=== PATIENT | male | born 1935 ===

== ENCOUNTER 2021-03-30 09:44 | Inpatient (IN) | payer MEDICARE, OTHER ==
[~2021-03-30] VITALS: Ht 182.9 cm; Wt 55.0 kg
--- NOTE | 2021-03-30 10:34 | NUR ---
RESP ISO CART AT DOORWAY. EKG COMPLETED ON ARRIVAL. PT PLACED ON ALL ROOM MONITORING. IV PLACED, BC X 1 DRAWN WITH START. PT A/O X3. PT REPORTS COVID TEST AT [facility] 2-3 DAYS AGO. PRODUCTIVE COUGH, WHITE SPUTUM, FATIGUE AND SOB WORSENING TODAY. RA SAT 97-98% PT DENIES PAIN, INTERMITTENTLY SLEEPING. WARM BLANKET PROVIDED, CALL LIGHT WITHIN REACH.
[2021-03-30] MEDS ORDERED: BPH MED PO (10:43)
[2021-03-30] MEDS ORDERED: CARB1TAB44 PO (10:43)
[2021-03-30 11:23] LABS: BASOPHILS % (AUTO) 1 % (0-1); EOSINOPHILS % (AUTO) 0 % (1-7); LYMPHOCYTES % (AUTO) 36 % (22-44); MEAN CORPUSCULAR HEMOGLOBIN 32.9 pg (27.5-34.5); MEAN CORPUSCULAR HGB CONC 35.5 g/dL (33.2-36.2); MEAN PLATELET VOLUME 6.7 fL (7.4-10.4); MONOCYTES % (AUTO) 17 % (2-9); NEUTROPHILS % (AUTO) 46 % (42-75); PLATELET COUNT 153 x10^3/uL (130-400); RED BLOOD COUNT 3.98 x10^6/uL (4.38-5.82); RED CELL DISTRIBUTION WIDTH 13.8 % (9.4-14.8)
[2021-03-30 11:30] LABS: ALBUMIN 3.4 g/dL (3.4-5.0); ANION GAP 6 mmol/L (5-15); CALCIUM 9.5 mg/dL (8.5-10.1); CHLORIDE 102 mmol/L (98-107)
[2021-03-30 11:34] LABS: ALANINE AMINOTRANSFERASE 9 U/L (12-78); ALKALINE PHOSPHATASE 71 U/L (45-117); BILIRUBIN,TOTAL 0.5 mg/dL (0.2-1.0); TOTAL PROTEIN 6.4 g/dL (6.4-8.2)
--- NOTE | 2021-03-30 12:06 | NUR ---
EMT ATTEMPTED TO GET PT UP OOB WITH WALKER AND AMBULATE. PT UNSTEADY AND TOO WEAK TO EVEN STAND. THIS REPORTED TO ERP.
--- NOTE | 2021-03-30 12:28 | NUR ---
[facility] IN TO SEE PT.
[2021-03-30] MEDS ORDERED: ONDANSETRON 2MG/ML, 2ML IVPush PRN (13:00)
[2021-03-30] MEDS ORDERED: ENOXAPARIN 40 MG/0.4 ML SQ SCH ×2 (13:00)
[2021-03-30] MEDS ORDERED: BENZONATATE 100 MG CAPSULE PO PRN (13:00)
[2021-03-30] MEDS ORDERED: ONDANSETRON ODT 4 MG PO PRN (13:00)
[2021-03-30] MEDS ORDERED: ACETAMINOPHEN 325 MG TABLET PO PRN (13:00)
--- NOTE | 2021-03-30 13:09 | NUR ---
ATTEMPT TO CALL REPORT.
--- NOTE | 2021-03-30 13:48 | NUR ---
AT BS, THROUGHPUT AND PRIMARY ATTEMPTING TO GET TRANSPORT FOR HOME. PT TO REMAIN IN ED UNTIL IS DISCHARGED FROM ED.
--- NOTE | 2021-03-30 14:53 | NUR ---
REPORT TO MOI INMAN READY FOR TRANSPORT.
[2021-03-30] MEDS: CARBIDOPA/LEVODOPA CR 50 MG/200 MG TABLET PO SCH ×2 (16:00→21:17)
[2021-03-30] MEDS: DEXAMETHASONE 4 MG TABLET PO SCH ×2 (16:00→21:17)
[2021-03-30 16:20] LABS: ALANINE AMINOTRANSFERASE 11 U/L (12-78); ALBUMIN 3.2 g/dL (3.4-5.0); ANION GAP 7 mmol/L (5-15); CALCIUM 9.4 mg/dL (8.5-10.1); CHLORIDE 103 mmol/L (98-107)
[2021-03-30 16:23] LABS: ALKALINE PHOSPHATASE 72 U/L (45-117); BILIRUBIN,TOTAL 0.5 mg/dL (0.2-1.0); TOTAL PROTEIN 6.1 g/dL (6.4-8.2)
[2021-03-30] MEDS: CEFTRIAXONE 1,000 MG in DEXTROSE 5% 50 ML IV SCH (18:34)
[2021-03-30] MEDS: SODIUM CHLORIDE 0.9% 1,000 ML IV SCH (18:34)
[2021-03-30 20:01] VITALS: BP 131/70
[2021-03-30] MEDS: ENOXAPARIN 60 MG/0.6 ML SQ SCH (21:17)
[2021-03-31 00:51] VITALS: BP 116/67
[2021-03-31 04:40] LABS: BASOPHILS % (AUTO) 1 % (0-1); EOSINOPHILS % (AUTO) 1 % (1-7); LYMPHOCYTES % (AUTO) 34 % (22-44); MEAN CORPUSCULAR HEMOGLOBIN 32.3 pg (27.5-34.5); MEAN CORPUSCULAR HGB CONC 35.2 g/dL (33.2-36.2); MEAN PLATELET VOLUME 6.7 fL (7.4-10.4); MONOCYTES % (AUTO) 14 % (2-9); NEUTROPHILS % (AUTO) 50 % (42-75); PLATELET COUNT 146 x10^3/uL (130-400); RED BLOOD COUNT 4.01 x10^6/uL (4.38-5.82); RED CELL DISTRIBUTION WIDTH 13.5 % (9.4-14.8)
[2021-03-31 04:50] LABS: ANION GAP 8 mmol/L (5-15); CALCIUM 8.5 mg/dL (8.5-10.1); CHLORIDE 104 mmol/L (98-107)
[2021-03-31 04:52] LABS: ALANINE AMINOTRANSFERASE 16 U/L (12-78); ALKALINE PHOSPHATASE 72 U/L (45-117); BILIRUBIN,TOTAL 0.5 mg/dL (0.2-1.0); CREATINE KINASE, TOTAL 543 U/L (39-308); CREATININE 0.72 mg/dL (0.7-1.3); TOTAL PROTEIN 6.1 g/dL (6.4-8.2)
[2021-03-31] MEDS: CARBIDOPA/LEVODOPA CR 50 MG/200 MG TABLET PO SCH ×2 (06:15→11:59)
[2021-03-31 07:54] VITALS: BP 125/72
[2021-03-31] MEDS ORDERED: BPH MED PO SCH (09:00)
[2021-03-31] MEDS: DEXAMETHASONE 4 MG TABLET PO SCH ×3 (09:40→21:51)
[2021-03-31] MEDS: ENOXAPARIN 60 MG/0.6 ML SQ SCH ×2 (09:41→21:51)
[2021-03-31 12:48] VITALS: BP 157/77
[2021-03-31] MEDS ORDERED: PRAM1TAB5 PO (12:49)
[2021-03-31] MEDS ORDERED: OXYC-307 PO (12:49)
[2021-03-31] MEDS ORDERED: FINA5TAB4 PO (12:49)
[2021-03-31] MEDS ORDERED: SIMV20TA19 PO (12:49)
[2021-03-31] MEDS ORDERED: TROS20TA2 PO (12:49)
[2021-03-31] MEDS ORDERED: TAMS-11 PO (12:49)
[2021-03-31] MEDS: CEFTRIAXONE 1,000 MG in DEXTROSE 5% 50 ML IV SCH (17:58)
[2021-03-31] MEDS: SODIUM CHLORIDE 0.9% 1,000 ML IV SCH (17:58)
[2021-03-31 21:44] VITALS: BP 169/84
[2021-03-31 21:49] VITALS: BP 167/84
[2021-03-31] MEDS: CARBIDOPA/LEVODOPA 25 MG/100 MG TABLET PO SCH (21:51)
[2021-04-01 00:35] VITALS: BP_SYST 168; BP_SYST 170; BP_DIAS 79; BP_DIAS 89
[2021-04-01] MEDS ORDERED: hydrALAzine 20 MG/ML, 1ML IV PRN (03:00)
[2021-04-01] MEDS: CARBIDOPA/LEVODOPA 25 MG/100 MG TABLET PO SCH ×4 (05:43→20:49)
[2021-04-01 06:31] VITALS: BP 143/83
[2021-04-01 07:36] LABS: BASOPHILS % (AUTO) 0 % (0-1); EOSINOPHILS % (AUTO) 0 % (1-7); LYMPHOCYTES % (AUTO) 25 % (22-44); MEAN CORPUSCULAR HEMOGLOBIN 32.1 pg (27.5-34.5); MEAN CORPUSCULAR HGB CONC 35.3 g/dL (33.2-36.2); MEAN PLATELET VOLUME 6.7 fL (7.4-10.4); MONOCYTES % (AUTO) 11 % (2-9); NEUTROPHILS % (AUTO) 64 % (42-75); PLATELET COUNT 157 x10^3/uL (130-400); RED BLOOD COUNT 4.11 x10^6/uL (4.38-5.82); RED CELL DISTRIBUTION WIDTH 13.3 % (9.4-14.8)
[2021-04-01 07:49] LABS: ALBUMIN 3.1 g/dL (3.4-5.0); CALCIUM 9.2 mg/dL (8.5-10.1)
[2021-04-01 07:50] LABS: CREATININE 0.71 mg/dL (0.7-1.3)
[2021-04-01 08:19] LABS: ANION GAP 4 mmol/L (5-15); CHLORIDE 107 mmol/L (98-107)
[2021-04-01 08:25] LABS: BAND#(MANUAL) 0.02 x10^3/uL; BANDS%(MANUAL) 1 % (0-7); LYMPHS% (MANUAL) 25 % (22-44); MONOS#(MANUAL) 0.26 x10^3/uL (0.3-2.7); MONOS% (MANUAL) 13 % (2-9); SEG#(MANUAL) 1.22 x10^3/uL (1.8-6.8); SEGS% (MANUAL) 61 % (42-75)
[2021-04-01 08:26] LABS: <PLATELET ESTIMATE> ADEQUATE; <PLT MORPHOLOGY> NORMAL PLT MORPH; <RBC MORPHOLOGY> NORMAL
[2021-04-01] MEDS: DEXAMETHASONE 4 MG TABLET PO SCH ×3 (12:22→20:49)
[2021-04-01] MEDS: ENOXAPARIN 60 MG/0.6 ML SQ SCH ×2 (12:23→20:50)
[2021-04-01] MEDS: SODIUM CHLORIDE 0.9% 1,000 ML IV SCH (12:23)
[2021-04-01 12:57] VITALS: BP 144/74
[2021-04-01] MEDS: CEFTRIAXONE 1,000 MG in DEXTROSE 5% 50 ML IV SCH (17:39)
[2021-04-01 19:37] VITALS: BP 172/82
[2021-04-01 22:52] VITALS: BP 149/83
[2021-04-02 00:35] VITALS: BP 144/79
[2021-04-02] MEDS: CARBIDOPA/LEVODOPA 25 MG/100 MG TABLET PO SCH ×4 (05:49→21:36)
[2021-04-02] MEDS: SODIUM CHLORIDE 0.9% 1,000 ML IV SCH (05:50)
[2021-04-02 08:06] VITALS: BP 106/65
[2021-04-02 08:24] LABS: ANION GAP 6 mmol/L (5-15); CALCIUM 10.1 mg/dL (8.5-10.1); CHLORIDE 110 mmol/L (98-107); CREATININE 0.86 mg/dL (0.7-1.3)
[2021-04-02] MEDS: DEXAMETHASONE 4 MG TABLET PO SCH ×3 (11:25→21:36)
[2021-04-02] MEDS: ENOXAPARIN 60 MG/0.6 ML SQ SCH ×2 (11:26→21:37)
[2021-04-02 13:57] VITALS: BP 144/82
[2021-04-02] MEDS: CEFTRIAXONE 1,000 MG in DEXTROSE 5% 50 ML IV SCH (17:50)
[2021-04-02 22:50] VITALS: BP 144/90
[2021-04-03 00:17] VITALS: BP 170/94
[2021-04-03] MEDS ORDERED: TRAZODONE 50MG TABLET PO ONE (01:30)
[2021-04-03 01:35] VITALS: BP 156/86
[2021-04-03] MEDS: SODIUM CHLORIDE 0.9% 1,000 ML IV SCH (01:35)
[2021-04-03] MEDS: CARBIDOPA/LEVODOPA 25 MG/100 MG TABLET PO SCH ×3 (05:42→17:09)
[2021-04-03 06:06] LABS: BASOPHILS % (AUTO) 0 % (0-1); EOSINOPHILS % (AUTO) 0 % (1-7); LYMPHOCYTES % (AUTO) 21 % (22-44); MEAN CORPUSCULAR HEMOGLOBIN 32.6 pg (27.5-34.5); MEAN CORPUSCULAR HGB CONC 35.6 g/dL (33.2-36.2); MEAN PLATELET VOLUME 6.9 fL (7.4-10.4); MONOCYTES % (AUTO) 11 % (2-9); NEUTROPHILS % (AUTO) 68 % (42-75); PLATELET COUNT 203 x10^3/uL (130-400); RED BLOOD COUNT 4.46 x10^6/uL (4.38-5.82); RED CELL DISTRIBUTION WIDTH 13.6 % (9.4-14.8)
[2021-04-03 06:15] LABS: CHLORIDE 109 mmol/L (98-107)
[2021-04-03 06:26] LABS: ANION GAP 7 mmol/L (5-15); CALCIUM 9.1 mg/dL (8.5-10.1); CREATININE 0.68 mg/dL (0.7-1.3)
[2021-04-03 07:15] VITALS: BP 158/91
[2021-04-03] MEDS: DEXAMETHASONE 4 MG TABLET PO SCH ×2 (11:21→17:09)
[2021-04-03] MEDS: ENOXAPARIN 60 MG/0.6 ML SQ SCH (11:22)
[2021-04-03 12:22] VITALS: BP 107/63
[2021-04-03] MEDS ORDERED: ASCO250T12 PO ×3 (14:03→14:22)
[2021-04-03] MEDS ORDERED: BENZ-17 PO ×3 (14:03→14:22)
[2021-04-03] MEDS ORDERED: CHOL10003 PO ×3 (14:03→14:22)
[2021-04-03] MEDS ORDERED: DEXA4TAB66 PO ×3 (14:03→14:22)
[2021-04-03] MEDS ORDERED: DOXY100T PO ×3 (14:03→14:22)
[2021-04-03] MEDS ORDERED: ZINC220C8 PO ×3 (14:03→14:22)
[2021-04-03] MEDS ORDERED: THIA100T67 PO ×3 (14:03→14:22)
[2021-04-03] MEDS ORDERED: ASCORBIC ACID 250 MG TAB PO SCH (17:00)
[2021-04-03] MEDS ORDERED: DOXYCYCLINE 100MG TABLET PO SCH (21:00)
[2021-04-03] MEDS ORDERED: THIAMINE 100MG TABLET PO SCH (21:00)
[2021-04-04] MEDS ORDERED: ZINC SULFATE 220 MG CAPSULE PO SCH (09:00)
[2021-04-04] MEDS ORDERED: CHOLECALCIFEROL 1,000 UNIT TABLET PO SCH (09:00)
== END 2021-04-03 18:26 | disposition home health service (06) | DRG 178 ==
LOC: ED 13:13 → EDIP 13:18 → 3N 15:11
PROVIDERS: ADMIT Internal Medicine; ATTEND Internal Medicine
DX: U07.1 COVID-19 (principal); E87.1 Hypo-osmolality and hyponatremia; R74.01 Elevation of levels of liver transaminase levels; G20 Parkinson's disease; D72.819 Decreased white blood cell count, unspecified; E86.0 Dehydration; I10 Essential (primary) hypertension; I35.2 Nonrheumatic aortic (valve) stenosis with insufficiency; D64.9 Anemia, unspecified; Z79.899 Other long term (current) drug therapy
CPT/HCPCS: 36415; 71045; 80048; 80053; 80069; 82550; 82728; 83605; 83615; 84145; 85025; 85379; 87040; 93005; 93306; 93356; 96374; G0378; J0696; J1650; U0005; J0360; J7030; U0003

== ENCOUNTER 2021-04-05 06:33 | Inpatient (IN) | payer MEDICARE, OTHER ==
[~2021-04-05] VITALS: Ht 185.4 cm; Wt 63.4 kg
[~2021-04-05 06:33] MED LIST: ASCO250T12 PO; BENZ-17 PO; BPH MED PO; CARB1TAB44 PO; CHOL10003 PO; DEXA4TAB66 PO; DOXY100T PO; FINA5TAB4 PO; OXYC-307 PO; PRAM1TAB5 PO; SIMV20TA19 PO; TAMS-11 PO; THIA100T67 PO; TROS20TA2 PO; ZINC220C8 PO
--- NOTE | 2021-04-05 07:01 | NUR ---
RECEIVED REPORT FROM PRIYANKA REYNA RN. PT RESTING ON GUNNARЮЛИЯ. NADN. CARDENAS.
--- NOTE | 2021-04-05 08:01 | NUR ---
PT RESTING ON BEN. HOLDEN. VSS. ERP DR. PRIETO AT BEDSIDE FOR RE-EVAL.
[2021-04-05 08:46] LABS: BASOPHILS % (AUTO) 0 % (0-1); EOSINOPHILS % (AUTO) 0 % (1-7); LYMPHOCYTES % (AUTO) 15 % (22-44); MEAN CORPUSCULAR HEMOGLOBIN 32.2 pg (27.5-34.5); MEAN PLATELET VOLUME 7.2 fL (7.4-10.4); MONOCYTES % (AUTO) 12 % (2-9); NEUTROPHILS % (AUTO) 73 % (42-75); PLATELET COUNT 220 x10^3/uL (130-400); RED CELL DISTRIBUTION WIDTH 13.6 % (9.4-14.8)
[2021-04-05 08:52] LABS: ALANINE AMINOTRANSFERASE 17 U/L (12-78); ALBUMIN 3.6 g/dL (3.4-5.0); ANION GAP 8 mmol/L (5-15); CALCIUM 9.6 mg/dL (8.5-10.1); CHLORIDE 103 mmol/L (98-107); CREATININE 1.38 mg/dL (0.7-1.3)
[2021-04-05 08:54] LABS: INTERNATIONAL NORMALIZED RATIO 1.04 (0.93-1.1); PROTHROMBIN TIME 11.1 Seconds (9.6-11.5)
[2021-04-05 08:55] LABS: ALKALINE PHOSPHATASE 71 U/L (45-117); BILIRUBIN,TOTAL 0.7 mg/dL (0.2-1.0); TOTAL PROTEIN 6.8 g/dL (6.4-8.2)
--- NOTE | 2021-04-05 09:07 | NUR ---
PT RESTING ON GURNEY. NADN. CARDENAS.
--- NOTE | 2021-04-05 10:03 | NUR ---
PT RESTING ON GURNEY. NADN. CARDENAS.
--- NOTE | 2021-04-05 10:59 | NUR ---
PT RESTING ON GURNEY. NADN. CARDENAS.
--- NOTE | 2021-04-05 11:44 | NUR ---
ATTEMPTED TO AMBULATE PT W/ WALKER PER ERP DR. PRIETO'S REQUEST. PT W/ SHUFFLING GAIT. PER ERP OKAY TO DC BACK TO [facility].
--- NOTE | 2021-04-05 11:57 | NUR ---
PT RESTING ON GURNEY. NADN. CARDENAS.
--- NOTE | 2021-04-05 12:02 | NUR ---
[facility] transport requested at this time; throughput nurse
--- NOTE | 2021-04-05 12:13 | NUR ---
SPOKE W/ DONOVAN, EXECUTIVE AT [facility] AT [phone] WHO STATES THEY DO NOT HAVE THE ABILITY TO TAKE CARE OF PT AND WOULD PREFER PT BE SENT TO SNF. ERP DR. PRIETO NOTIFIED AND SW. [facility]
--- NOTE | 2021-04-05 12:55 | NUR ---
Break RN note: Pt assisted to use urinal per request. Pt denies other needs.
--- NOTE | 2021-04-05 13:58 | NUR ---
PT RESTING ON GURNEY. NADN. CARDENAS.
--- NOTE | 2021-04-05 14:18 | NUR ---
PHYSICAL THERAPY AT BEDSIDE FOR EVAL.
--- NOTE | 2021-04-05 15:22 | NUR ---
PT RESTING ON ЮЛИЯ. HOLDEN. VSS. PT FAILED PT AND IS AWAITING BED PLACEMENT UPSTAIRS.
--- NOTE | 2021-04-05 15:28 | NUR ---
PT PROVIDED W/ DIET TRAY.
--- NOTE | 2021-04-05 15:48 | NUR ---
REPORT GIVEN TO JOEY BHATIA RN. ALL QUESTIONS ANSWERED. AWAITING PT TRANSPORT.
[2021-04-05] MEDS: HEPARIN 5,000 UNITS/ML, 1ML SQ SCH (17:10)
[2021-04-05 17:19] VITALS: BP 96/58
[2021-04-05 18:55] LABS: MICROSCOPIC INDICATED
[2021-04-05] MEDS: ACETAMINOPHEN 325 MG TABLET PO PRN (20:13)
[2021-04-05 20:17] VITALS: BP 109/65
[2021-04-06] MEDS: HEPARIN 5,000 UNITS/ML, 1ML SQ SCH ×3 (00:39→17:53)
[2021-04-06 00:42] VITALS: BP 122/67
[2021-04-06 07:24] VITALS: BP 147/75
[2021-04-06] MEDS: ACETAMINOPHEN 325 MG TABLET PO PRN (08:45)
[2021-04-06] MEDS: HALOPERIDOL 1 MG TABLET PO PRN (10:58)
[2021-04-06 13:06] VITALS: BP 170/71
[2021-04-06 13:12] LABS: ANION GAP 5 mmol/L (5-15); CALCIUM 9.6 mg/dL (8.5-10.1); CHLORIDE 105 mmol/L (98-107); CREATININE 0.85 mg/dL (0.7-1.3)
[2021-04-06 19:40] VITALS: BP 148/82
[2021-04-07] VITALS (9 sets, daily range): BP systolic 73–174; BP diastolic 45–80
[2021-04-07] MEDS: HEPARIN 5,000 UNITS/ML, 1ML SQ SCH ×3 (02:00→17:36)
[2021-04-07] MEDS ORDERED: LISINOPRIL 5 MG TABLET PO ONE (09:30)
[2021-04-07] MEDS: DOCUSATE 100 MG CAPSULE PO PRN (11:24)
[2021-04-07] MEDS ORDERED: POTASSIUM CHLORIDE 20 MEQ TAB.ER.PRT PO ONE (14:00)
[2021-04-07] MEDS: PRAMIPEXOLE 0.5MG TABLET PO SCH ×2 (15:42→20:39)
[2021-04-07] MEDS: CARBIDOPA/LEVODOPA CR 50 MG/200 MG TABLET PO SCH ×2 (15:42→20:38)
[2021-04-07] MEDS: SIMVASTATIN 20 MG TABLET PO SCH (20:38)
[2021-04-07] MEDS ORDERED: SODIUM CHLORIDE 0.9%, 500ML IVBOLUS ONE ×2 (21:30→23:30)
[2021-04-08 00:39] VITALS: BP 111/63
[2021-04-08] MEDS: HEPARIN 5,000 UNITS/ML, 1ML SQ SCH ×3 (02:43→17:41)
[2021-04-08] MEDS: CARBIDOPA/LEVODOPA CR 50 MG/200 MG TABLET PO SCH ×4 (06:03→21:46)
[2021-04-08 08:57] VITALS: BP 103/57
[2021-04-08] MEDS: CHOLECALCIFEROL 1,000 UNIT TABLET PO SCH (10:14)
[2021-04-08] MEDS: TAMSULOSIN 0.4 MG CAP.ER.24H PO SCH (10:14)
[2021-04-08] MEDS: PRAMIPEXOLE 0.5MG TABLET PO SCH ×3 (10:14→21:46)
[2021-04-08] MEDS: FINASTERIDE 5 MG TABLET PO SCH (11:03)
[2021-04-08] MEDS: SODIUM CHLORIDE 0.9% 1,000 ML IV SCH ×2 (12:38)
[2021-04-08 14:35] VITALS: BP 95/56
[2021-04-08 14:46] VITALS: BP 132/84
[2021-04-08 19:49] VITALS: BP 117/67
[2021-04-08] MEDS: ACETAMINOPHEN 325 MG TABLET PO PRN (21:46)
[2021-04-08] MEDS: SIMVASTATIN 20 MG TABLET PO SCH (21:46)
[2021-04-09 00:42] VITALS: BP 97/57
[2021-04-09] MEDS: HEPARIN 5,000 UNITS/ML, 1ML SQ SCH ×3 (02:23→17:15)
[2021-04-09] MEDS: ACETAMINOPHEN 325 MG TABLET PO PRN (02:23)
[2021-04-09] MEDS: SODIUM CHLORIDE 0.9% 1,000 ML IV SCH ×2 (02:23→15:33)
[2021-04-09 05:35] VITALS: BP 129/67
[2021-04-09] MEDS: CARBIDOPA/LEVODOPA CR 50 MG/200 MG TABLET PO SCH ×4 (05:37→20:23)
[2021-04-09 07:10] LABS: BASOPHILS % (AUTO) 1 % (0-1); EOSINOPHILS % (AUTO) 3 % (1-7); LYMPHOCYTES % (AUTO) 27 % (22-44); MEAN CORPUSCULAR HGB CONC 34.7 g/dL (33.2-36.2); MEAN PLATELET VOLUME 6.5 fL (7.4-10.4); MONOCYTES % (AUTO) 11 % (2-9); NEUTROPHILS % (AUTO) 59 % (42-75); PLATELET COUNT 228 x10^3/uL (130-400); RED BLOOD COUNT 3.97 x10^6/uL (4.38-5.82); RED CELL DISTRIBUTION WIDTH 13.4 % (9.4-14.8)
[2021-04-09 07:19] LABS: CALCIUM 9.7 mg/dL (8.5-10.1); CHLORIDE 112 mmol/L (98-107)
[2021-04-09 07:25] LABS: ALANINE AMINOTRANSFERASE 9 U/L (12-78); ALBUMIN 2.6 g/dL (3.4-5.0); ALKALINE PHOSPHATASE 62 U/L (45-117); ANION GAP 4 mmol/L (5-15); BILIRUBIN,TOTAL 0.8 mg/dL (0.2-1.0); CREATININE 0.58 mg/dL (0.7-1.3); TOTAL PROTEIN 5.4 g/dL (6.4-8.2)
[2021-04-09 08:33] VITALS: BP 169/75
[2021-04-09] MEDS: PRAMIPEXOLE 0.5MG TABLET PO SCH ×3 (08:43→20:23)
[2021-04-09] MEDS: TAMSULOSIN 0.4 MG CAP.ER.24H PO SCH (08:43)
[2021-04-09] MEDS: CHOLECALCIFEROL 1,000 UNIT TABLET PO SCH (08:43)
[2021-04-09] MEDS: FINASTERIDE 5 MG TABLET PO SCH (08:44)
[2021-04-09 12:35] VITALS: BP 151/78
[2021-04-09 20:18] VITALS: BP 126/72
[2021-04-09] MEDS: SIMVASTATIN 20 MG TABLET PO SCH (20:23)
[2021-04-10] MEDS: HEPARIN 5,000 UNITS/ML, 1ML SQ SCH ×3 (01:17→17:35)
[2021-04-10 01:48] VITALS: BP 169/78
[2021-04-10] MEDS: CARBIDOPA/LEVODOPA CR 50 MG/200 MG TABLET PO SCH ×4 (05:17→21:41)
[2021-04-10] MEDS: SODIUM CHLORIDE 0.9% 1,000 ML IV SCH (05:17)
[2021-04-10 07:22] VITALS: BP 172/78
[2021-04-10] MEDS: PRAMIPEXOLE 0.5MG TABLET PO SCH ×3 (08:38→21:41)
[2021-04-10] MEDS: FINASTERIDE 5 MG TABLET PO SCH (08:38)
[2021-04-10] MEDS: TAMSULOSIN 0.4 MG CAP.ER.24H PO SCH (08:38)
[2021-04-10] MEDS: CHOLECALCIFEROL 1,000 UNIT TABLET PO SCH (08:38)
[2021-04-10 13:30] VITALS: BP 109/67
[2021-04-10 19:59] VITALS: BP 156/68
[2021-04-10] MEDS: SIMVASTATIN 20 MG TABLET PO SCH (21:40)
[2021-04-10] MEDS: ACETAMINOPHEN 325 MG TABLET PO PRN (21:41)
[2021-04-11 01:06] VITALS: BP 118/64
[2021-04-11] MEDS: HEPARIN 5,000 UNITS/ML, 1ML SQ SCH ×3 (01:43→18:17)
[2021-04-11] MEDS: ACETAMINOPHEN 325 MG TABLET PO PRN ×4 (03:38→21:14)
[2021-04-11] MEDS: CARBIDOPA/LEVODOPA CR 50 MG/200 MG TABLET PO SCH ×4 (06:10→21:14)
[2021-04-11 07:28] VITALS: BP 134/72
[2021-04-11] MEDS: FINASTERIDE 5 MG TABLET PO SCH (08:26)
[2021-04-11] MEDS: TAMSULOSIN 0.4 MG CAP.ER.24H PO SCH (08:26)
[2021-04-11] MEDS: CHOLECALCIFEROL 1,000 UNIT TABLET PO SCH (08:26)
[2021-04-11] MEDS: PRAMIPEXOLE 0.5MG TABLET PO SCH ×3 (08:26→21:13)
[2021-04-11 12:51] VITALS: BP 138/75
[2021-04-11 20:23] VITALS: BP 156/67
[2021-04-11] MEDS: SIMVASTATIN 20 MG TABLET PO SCH (21:14)
[2021-04-12 00:45] VITALS: BP 123/64
[2021-04-12] MEDS: HEPARIN 5,000 UNITS/ML, 1ML SQ SCH ×3 (02:41→18:46)
[2021-04-12] MEDS: CARBIDOPA/LEVODOPA CR 50 MG/200 MG TABLET PO SCH ×4 (05:44→21:29)
[2021-04-12] MEDS: ACETAMINOPHEN 325 MG TABLET PO PRN (05:44)
[2021-04-12] MEDS: TAMSULOSIN 0.4 MG CAP.ER.24H PO SCH (09:19)
[2021-04-12] MEDS: DOCUSATE 100 MG CAPSULE PO PRN (09:20)
[2021-04-12] MEDS: PRAMIPEXOLE 0.5MG TABLET PO SCH ×3 (09:20→21:29)
[2021-04-12] MEDS: CHOLECALCIFEROL 1,000 UNIT TABLET PO SCH (09:20)
[2021-04-12 10:00] VITALS: BP 132/69
[2021-04-12] MEDS: FINASTERIDE 5 MG TABLET PO SCH (11:35)
[2021-04-12 13:12] VITALS: BP 122/71
[2021-04-12 19:38] VITALS: BP 126/72
[2021-04-12] MEDS: SIMVASTATIN 20 MG TABLET PO SCH (21:29)
[2021-04-13 00:08] VITALS: BP 122/70
[2021-04-13] MEDS: HEPARIN 5,000 UNITS/ML, 1ML SQ SCH ×3 (02:11→18:46)
[2021-04-13] MEDS: CARBIDOPA/LEVODOPA CR 50 MG/200 MG TABLET PO SCH ×4 (05:11→21:35)
[2021-04-13] MEDS: ACETAMINOPHEN 325 MG TABLET PO PRN ×2 (05:48→11:39)
[2021-04-13 09:09] VITALS: BP 117/64
[2021-04-13] MEDS: CHOLECALCIFEROL 1,000 UNIT TABLET PO SCH (09:24)
[2021-04-13] MEDS: FINASTERIDE 5 MG TABLET PO SCH (09:24)
[2021-04-13] MEDS: TAMSULOSIN 0.4 MG CAP.ER.24H PO SCH (09:24)
[2021-04-13] MEDS: PRAMIPEXOLE 0.5MG TABLET PO SCH ×3 (09:24→21:36)
[2021-04-13 13:19] VITALS: BP 122/75
[2021-04-13] MEDS: MAGNESIUM HYDROXIDE 8%, 30ML UDC PO PRN (18:45)
[2021-04-13] MEDS: DOCUSATE 100 MG CAPSULE PO PRN (18:45)
[2021-04-13 21:16] VITALS: BP 122/68
[2021-04-13] MEDS: SIMVASTATIN 20 MG TABLET PO SCH (21:35)
[2021-04-14 01:02] VITALS: BP 166/84
[2021-04-14] MEDS: HEPARIN 5,000 UNITS/ML, 1ML SQ SCH ×3 (03:10→18:00)
[2021-04-14] MEDS: CARBIDOPA/LEVODOPA CR 50 MG/200 MG TABLET PO SCH ×4 (05:03→20:46)
[2021-04-14 08:57] VITALS: BP_DIAS 124
[2021-04-14] MEDS: MAGNESIUM HYDROXIDE 8%, 30ML UDC PO PRN (09:16)
[2021-04-14] MEDS: PRAMIPEXOLE 0.5MG TABLET PO SCH ×3 (09:17→20:46)
[2021-04-14] MEDS: CHOLECALCIFEROL 1,000 UNIT TABLET PO SCH (09:17)
[2021-04-14] MEDS: FINASTERIDE 5 MG TABLET PO SCH (09:17)
[2021-04-14] MEDS: DOCUSATE 100 MG CAPSULE PO PRN ×2 (09:17→18:15)
[2021-04-14] MEDS: TAMSULOSIN 0.4 MG CAP.ER.24H PO SCH (09:18)
[2021-04-14 12:26] VITALS: BP 109/54
[2021-04-14] MEDS: ACETAMINOPHEN 325 MG TABLET PO PRN (15:16)
[2021-04-14 19:34] VITALS: BP 100/60
[2021-04-14] MEDS: SIMVASTATIN 20 MG TABLET PO SCH (20:46)
[2021-04-15 00:11] VITALS: BP 109/73
[2021-04-15] MEDS: HEPARIN 5,000 UNITS/ML, 1ML SQ SCH ×3 (02:20→17:19)
[2021-04-15] MEDS: CARBIDOPA/LEVODOPA CR 50 MG/200 MG TABLET PO SCH ×4 (06:00→20:27)
[2021-04-15 08:08] VITALS: BP 143/70
[2021-04-15] MEDS: FINASTERIDE 5 MG TABLET PO SCH (08:58)
[2021-04-15] MEDS: PRAMIPEXOLE 0.5MG TABLET PO SCH ×3 (08:58→20:27)
[2021-04-15] MEDS: TAMSULOSIN 0.4 MG CAP.ER.24H PO SCH (08:59)
[2021-04-15] MEDS: CHOLECALCIFEROL 1,000 UNIT TABLET PO SCH (08:59)
[2021-04-15 14:47] VITALS: BP 108/60
[2021-04-15 20:00] VITALS: BP 101/57
[2021-04-15] MEDS: SIMVASTATIN 20 MG TABLET PO SCH (20:27)
[2021-04-16] MEDS: HEPARIN 5,000 UNITS/ML, 1ML SQ SCH ×3 (02:00→18:00)
[2021-04-16 02:11] VITALS: BP 108/64
[2021-04-16] MEDS: CARBIDOPA/LEVODOPA CR 50 MG/200 MG TABLET PO SCH ×4 (07:28→20:47)
[2021-04-16] MEDS: TAMSULOSIN 0.4 MG CAP.ER.24H PO SCH (10:23)
[2021-04-16] MEDS: PRAMIPEXOLE 0.5MG TABLET PO SCH ×3 (10:24→20:46)
[2021-04-16] MEDS: CHOLECALCIFEROL 1,000 UNIT TABLET PO SCH (10:24)
[2021-04-16] MEDS: FINASTERIDE 5 MG TABLET PO SCH (10:37)
[2021-04-16 10:39] VITALS: BP 105/65
[2021-04-16 15:30] VITALS: BP 130/79
[2021-04-16 18:44] VITALS: BP 136/84
[2021-04-16] MEDS: SIMVASTATIN 20 MG TABLET PO SCH (20:47)
[2021-04-17] MEDS: HEPARIN 5,000 UNITS/ML, 1ML SQ SCH ×3 (02:00→18:18)
[2021-04-17 02:20] VITALS: BP 125/62
[2021-04-17] MEDS: CARBIDOPA/LEVODOPA CR 50 MG/200 MG TABLET PO SCH ×4 (06:26→21:44)
[2021-04-17 07:21] VITALS: BP 113/56
[2021-04-17] MEDS: FINASTERIDE 5 MG TABLET PO SCH (10:26)
[2021-04-17] MEDS: PRAMIPEXOLE 0.5MG TABLET PO SCH ×3 (10:26→21:43)
[2021-04-17] MEDS: TAMSULOSIN 0.4 MG CAP.ER.24H PO SCH (10:26)
[2021-04-17] MEDS: CHOLECALCIFEROL 1,000 UNIT TABLET PO SCH (10:26)
[2021-04-17 13:51] VITALS: BP 106/63
[2021-04-17] MEDS: ACETAMINOPHEN 325 MG TABLET PO PRN ×2 (16:35→21:44)
[2021-04-17 18:40] VITALS: BP 132/56
[2021-04-17] MEDS: SIMVASTATIN 20 MG TABLET PO SCH (21:44)
[2021-04-18 01:37] VITALS: BP 116/65
[2021-04-18] MEDS: HEPARIN 5,000 UNITS/ML, 1ML SQ SCH ×3 (02:00→17:08)
[2021-04-18] MEDS: CARBIDOPA/LEVODOPA CR 50 MG/200 MG TABLET PO SCH ×4 (06:13→21:12)
[2021-04-18 07:08] VITALS: BP 135/56
[2021-04-18] MEDS: TAMSULOSIN 0.4 MG CAP.ER.24H PO SCH (09:21)
[2021-04-18] MEDS: PRAMIPEXOLE 0.5MG TABLET PO SCH ×3 (09:21→21:12)
[2021-04-18] MEDS: FINASTERIDE 5 MG TABLET PO SCH (09:21)
[2021-04-18] MEDS: CHOLECALCIFEROL 1,000 UNIT TABLET PO SCH (09:21)
[2021-04-18 13:02] VITALS: BP 106/57
[2021-04-18 20:16] VITALS: BP 143/84
[2021-04-18] MEDS: HALOPERIDOL 1 MG TABLET PO PRN (21:12)
[2021-04-18] MEDS: SIMVASTATIN 20 MG TABLET PO SCH (21:12)
[2021-04-19] MEDS: HEPARIN 5,000 UNITS/ML, 1ML SQ SCH ×3 (01:37→17:01)
[2021-04-19 01:38] VITALS: BP 125/81
[2021-04-19] MEDS: CARBIDOPA/LEVODOPA CR 50 MG/200 MG TABLET PO SCH ×4 (05:18→20:46)
[2021-04-19 07:57] VITALS: BP 102/52
[2021-04-19] MEDS: PRAMIPEXOLE 0.5MG TABLET PO SCH ×3 (09:18→20:45)
[2021-04-19] MEDS: FINASTERIDE 5 MG TABLET PO SCH (09:18)
[2021-04-19] MEDS: CHOLECALCIFEROL 1,000 UNIT TABLET PO SCH (09:18)
[2021-04-19] MEDS: TAMSULOSIN 0.4 MG CAP.ER.24H PO SCH (09:18)
[2021-04-19 12:31] VITALS: BP 92/48
[2021-04-19 20:00] VITALS: BP 96/50
[2021-04-19] MEDS: ACETAMINOPHEN 325 MG TABLET PO PRN (20:45)
[2021-04-19] MEDS: SIMVASTATIN 20 MG TABLET PO SCH (20:46)
[2021-04-19] MEDS: MELATONIN 5 MG TABLET PO PRN (20:46)
[2021-04-20] MEDS: HEPARIN 5,000 UNITS/ML, 1ML SQ SCH ×3 (01:39→17:52)
[2021-04-20] MEDS: HALOPERIDOL 1 MG TABLET PO PRN ×2 (01:40→21:38)
[2021-04-20 02:00] VITALS: BP 107/69
[2021-04-20] MEDS: CARBIDOPA/LEVODOPA CR 50 MG/200 MG TABLET PO SCH ×4 (04:59→21:22)
[2021-04-20] MEDS ORDERED: POLYETHYLENE GLYCOL 17 GM PACKET PO ONE (08:00)
[2021-04-20 09:24] VITALS: BP 109/58
[2021-04-20] MEDS: CHOLECALCIFEROL 1,000 UNIT TABLET PO SCH (10:55)
[2021-04-20] MEDS: FINASTERIDE 5 MG TABLET PO SCH (10:55)
[2021-04-20] MEDS: TAMSULOSIN 0.4 MG CAP.ER.24H PO SCH (10:56)
[2021-04-20] MEDS: PRAMIPEXOLE 0.5MG TABLET PO SCH ×3 (10:56→21:23)
[2021-04-20] MEDS: SENNA/DOCUSATE TABLET PO SCH (10:56)
[2021-04-20 15:13] VITALS: BP 116/63
[2021-04-20 19:44] VITALS: BP 128/61
[2021-04-20] MEDS: ACETAMINOPHEN 325 MG TABLET PO PRN (21:22)
[2021-04-20] MEDS: MELATONIN 5 MG TABLET PO PRN (21:22)
[2021-04-20] MEDS: SIMVASTATIN 20 MG TABLET PO SCH (21:22)
[2021-04-20] MEDS: MAGNESIUM HYDROXIDE 8%, 30ML UDC PO PRN (21:23)
[2021-04-21 01:52] VITALS: BP 103/62
[2021-04-21] MEDS: HEPARIN 5,000 UNITS/ML, 1ML SQ SCH ×3 (03:41→18:03)
[2021-04-21] MEDS: POLYETHYLENE GLYCOL 17 GM PACKET NG PRN (06:18)
[2021-04-21] MEDS: CARBIDOPA/LEVODOPA CR 50 MG/200 MG TABLET PO SCH ×5 (06:18→21:28)
[2021-04-21 07:34] VITALS: BP 109/58
[2021-04-21] MEDS: TAMSULOSIN 0.4 MG CAP.ER.24H PO SCH (10:29)
[2021-04-21] MEDS: BISACODYL 5 MG EC TABLET PO PRN (10:30)
[2021-04-21] MEDS: FINASTERIDE 5 MG TABLET PO SCH (10:30)
[2021-04-21] MEDS: PRAMIPEXOLE 0.5MG TABLET PO SCH ×3 (10:30→21:28)
[2021-04-21] MEDS: SENNA/DOCUSATE TABLET PO SCH (10:30)
[2021-04-21] MEDS: CHOLECALCIFEROL 1,000 UNIT TABLET PO SCH (10:30)
[2021-04-21] MEDS: MAGNESIUM HYDROXIDE 8%, 30ML UDC PO PRN (10:32)
[2021-04-21 12:05] VITALS: BP 114/63
[2021-04-21] MEDS ORDERED: PINK LADY ENEMA 490 ML BOTTLE PR PRN (12:30)
[2021-04-21] MEDS ORDERED: BISACODYL 10 MG SUPP ONE (12:31)
[2021-04-21] MEDS: BISACODYL 10 MG SUPP PR PRN (12:37)
[2021-04-21 20:35] VITALS: BP 102/46
[2021-04-21] MEDS: MELATONIN 5 MG TABLET PO PRN (21:28)
[2021-04-21] MEDS: SIMVASTATIN 20 MG TABLET PO SCH (21:28)
[2021-04-22 00:42] VITALS: BP 93/50
[2021-04-22] MEDS: HEPARIN 5,000 UNITS/ML, 1ML SQ SCH ×2 (02:03→09:22)
[2021-04-22 02:22] VITALS: BP 80/33
[2021-04-22] MEDS ORDERED: LACTATED RINGERS 500 ML IVBOLUS ONE (03:00)
[2021-04-22 04:34] VITALS: BP 90/44
[2021-04-22] MEDS: CARBIDOPA/LEVODOPA CR 50 MG/200 MG TABLET PO SCH ×5 (05:44→21:26)
[2021-04-22 09:08] VITALS: BP 102/57
[2021-04-22] MEDS: CHOLECALCIFEROL 1,000 UNIT TABLET PO SCH (09:21)
[2021-04-22] MEDS: TAMSULOSIN 0.4 MG CAP.ER.24H PO SCH (09:21)
[2021-04-22] MEDS: PRAMIPEXOLE 0.5MG TABLET PO SCH ×3 (09:21→21:27)
[2021-04-22] MEDS: SENNA/DOCUSATE TABLET PO SCH (09:22)
[2021-04-22] MEDS: FINASTERIDE 5 MG TABLET PO SCH (09:48)
[2021-04-22 13:44] VITALS: BP 92/49
[2021-04-22] MEDS: ENOXAPARIN 40 MG/0.4 ML SQ SCH (17:59)
[2021-04-22 19:10] VITALS: BP 98/56
[2021-04-22] MEDS: SIMVASTATIN 20 MG TABLET PO SCH (21:26)
[2021-04-22] MEDS: MELATONIN 5 MG TABLET PO PRN (21:26)
[2021-04-23 01:42] VITALS: BP 102/62
[2021-04-23] MEDS: CARBIDOPA/LEVODOPA CR 50 MG/200 MG TABLET PO SCH ×5 (04:57→21:20)
[2021-04-23 06:25] LABS: CREATININE 0.78 mg/dL (0.7-1.3)
[2021-04-23 07:32] VITALS: BP 94/38
[2021-04-23] MEDS: CHOLECALCIFEROL 1,000 UNIT TABLET PO SCH (09:27)
[2021-04-23] MEDS: PRAMIPEXOLE 0.5MG TABLET PO SCH ×3 (09:27→21:20)
[2021-04-23] MEDS: TAMSULOSIN 0.4 MG CAP.ER.24H PO SCH (09:27)
[2021-04-23] MEDS: SENNA/DOCUSATE TABLET PO SCH (09:27)
[2021-04-23] MEDS: FINASTERIDE 5 MG TABLET PO SCH (09:27)
[2021-04-23 12:32] VITALS: BP 118/55
[2021-04-23] MEDS: ENOXAPARIN 40 MG/0.4 ML SQ SCH (16:31)
[2021-04-23 19:16] VITALS: BP 122/74
[2021-04-23] MEDS ORDERED: PRAMIPEXOLE 0.25MG TABLET ONE (20:42)
[2021-04-23] MEDS: SIMVASTATIN 20 MG TABLET PO SCH (21:20)
[2021-04-24 00:17] VITALS: BP 127/61
[2021-04-24] MEDS: CARBIDOPA/LEVODOPA CR 50 MG/200 MG TABLET PO SCH ×5 (05:13→21:33)
[2021-04-24] MEDS: ACETAMINOPHEN 325 MG TABLET PO PRN ×2 (05:56→21:34)
[2021-04-24 07:22] VITALS: BP 129/76
[2021-04-24] MEDS: FINASTERIDE 5 MG TABLET PO SCH (10:03)
[2021-04-24] MEDS: CHOLECALCIFEROL 1,000 UNIT TABLET PO SCH (10:03)
[2021-04-24] MEDS: TAMSULOSIN 0.4 MG CAP.ER.24H PO SCH (10:03)
[2021-04-24] MEDS: SENNA/DOCUSATE TABLET PO SCH (10:03)
[2021-04-24] MEDS: PRAMIPEXOLE 0.5MG TABLET PO SCH ×3 (10:03→21:33)
[2021-04-24 10:04] VITALS: BP 132/70
[2021-04-24 14:35] VITALS: BP 114/53
[2021-04-24] MEDS: ENOXAPARIN 40 MG/0.4 ML SQ SCH (16:46)
[2021-04-24 19:52] VITALS: BP 97/56
[2021-04-24] MEDS: SIMVASTATIN 20 MG TABLET PO SCH (21:33)
[2021-04-24] MEDS: POLYETHYLENE GLYCOL 17 GM PACKET NG PRN (21:33)
[2021-04-25 00:48] VITALS: BP 131/75
[2021-04-25] MEDS: CARBIDOPA/LEVODOPA CR 50 MG/200 MG TABLET PO SCH ×4 (05:41→16:58)
[2021-04-25] MEDS: MAGNESIUM HYDROXIDE 8%, 30ML UDC PO PRN (05:41)
[2021-04-25 07:11] VITALS: BP 132/63
[2021-04-25] MEDS: FINASTERIDE 5 MG TABLET PO SCH (08:51)
[2021-04-25] MEDS: PRAMIPEXOLE 0.5MG TABLET PO SCH ×2 (08:51→15:20)
[2021-04-25] MEDS: SENNA/DOCUSATE TABLET PO SCH (08:51)
[2021-04-25] MEDS: CHOLECALCIFEROL 1,000 UNIT TABLET PO SCH (08:51)
[2021-04-25] MEDS: TAMSULOSIN 0.4 MG CAP.ER.24H PO SCH (08:51)
[2021-04-25 13:33] VITALS: BP 88/44
[2021-04-25] MEDS: BISACODYL 10 MG SUPP PR PRN (15:20)
[2021-04-25] MEDS: BISACODYL 5 MG EC TABLET PO PRN (15:20)
[2021-04-25] MEDS: POLYETHYLENE GLYCOL 17 GM PACKET NG PRN (15:43)
[2021-04-25 16:00] VITALS: BP 110/60
[2021-04-25] MEDS: ENOXAPARIN 40 MG/0.4 ML SQ SCH (16:58)
== END 2021-04-25 18:09 | DRG 683 ==
LOC: ED 06:56 → EDIP 13:34 → INTOOBSV 13:34 → SUATTDRO 13:49 → 3N 16:10 → OBSVTOIN 04-06 13:09 → 4WST 04-08 03:15
PROVIDERS: ADMIT Family Medicine; ATTEND Internal Medicine
DX: N17.0 Acute kidney failure with tubular necrosis (principal); E44.0 Moderate protein-calorie malnutrition; Z68.1 Body mass index [BMI] 19.9 or less, adult; S20.211A Contusion of right front wall of thorax, initial encounter; G20 Parkinson's disease; I10 Essential (primary) hypertension; M16.11 Unilateral primary osteoarthritis, right hip; N40.0 Benign prostatic hyperplasia without lower urinary tract symptoms; Z66 Do not resuscitate; W18.39XA Other fall on same level, initial encounter; Y93.89 Activity, other specified; Y92.89 Other specified places as the place of occurrence of the external cause; Y99.8 Other external cause status
CPT/HCPCS: 36415; 70450; 80048; 80053; 81001; 82565; 82962; 85025; 85610; 85730; 86480; 93005; 96372; 99285; G0378; J1644; J1650; J7120; U0005; J7030; J7040; U0003